=== PATIENT | female | born 2000 | race Caucasian/White ===

== ENCOUNTER 2022-06-18 15:20 | Emergency (ER) | payer OTHER, SELFPAY ==
[2022-06-18 15:27] VITALS: BP 134/86; PULSE 91; RESP 16; TEMP 37.2; O2SAT 100
--- NOTE | 2022-06-18 17:35 | ED.URI ---
HPI - URI/Sore Throat General Chief Complaint: Upper Respiratory Infection Stated Complaint: Cough Time Seen by Provider: 06/18/22 17:35 Source: patient, RN notes reviewed and old records reviewed Mode of arrival: ambulatory Limitations: no limitations History of Present Illness HPI Narrative: 21-year-old female presents to [facility] with 2 week duration cough which has increased in frequency, has some greenish phlegm, also some nasal drainage. Patient reports that she is concerned for possible bronchitis or influenza exposure. Patient reports that she has been taking Mucinex cold and flu medication. Patient reports that her chest peck and her ribs are sore from coughing so much.Patient reports no known fevers. MD elicited complaint: cough, rhinorrhea and nasal congestion Onset (ago): week(s) (2) Able to tolerate fluids by mouth: Yes Treatments prior to arrival: cold medicine Related Data Home Medications Medication Instructions Recorded Confirmed magnesium oxide 400 mg (241.3 mg 400 mg PO DAILY 06/18/22 06/18/22 magnesium) tablet propranolol 20 mg tablet 20 mg PO BID 06/18/22 06/18/22 topiramate 25 mg tablet 25 mg PO BID 06/18/22 06/18/22 Allergies Allergy/AdvReac Type Severity Reaction Status Date / Time No Known Allergies Allergy Verified 06/18/22 16:28 Review of Systems Review of Systems: CONSTITUTIONAL: Denies fever, chills, or sweats. CARDIOVASCULAR: Denies chest pain, palpitations, or edema. RESPIRATORY: Reports cough denies dyspnea. Reports that ribs are sore from coughing and chest peck with cough at times SKIN: Denies rash or itching. Denies lacerations or abrasions MUSCULOSKELETAL: no back pain or any joint pain or myalgia NEUROLOGIC: Denies numbness, or weakness. All systems reviewed & are unremarkable except as noted in HPI and below PMFSH Past Medical History Medical History (Updated 06/23/22 @ 23:57 by Nae Frost NP) Easy bruising Migraine Social History Social History (Updated 06/23/22 @ 23:55 by Nae Frost NP) Smoking status: Never smoker Alcohol use details: does not use Substance use type: does not use Gender identity (if verbalized by the patient): Female Comments At time of signature, agree with nursing past medical, surgical, social and family history. There is no relevant family history pertinent to the presenting complaint Exam Narrative: GENERAL: Well-appearing, well-nourished, and in no acute distress. HEAD: Normocephalic, atraumatic. EYES: PERRLA and EOMI. ENT: Nares clear, clear rhinorrhea no epistaxis. Mucous membranes moist.TM's normal with good light reflex, throat red with no tonsil swelling post nasal discharge noted NECK: Supple.no lymphadenopathy CHEST: Clear to auscultation. No respiratory distress. dry and productive cough noted.SAO2 100% on room air HEART: Regular rate and rhythm. No murmur heard. Normal peripheral pulses. ABDOMEN: Soft, nontender, nondistended, normal active bowel sounds. EXTREMITIES: Normal range of motion. No edema. SKIN: Warm, dry, no rash. NEURO: No focal deficits. Alert and oriented x3. Course Course Emergency Course: Patient is aware of diagnosis, understands and agrees to treatment plan.? Anticipatory guidance given.? Patient agrees to follow-up as directed and is aware of reasons to seek care at the emergency department. Portions of this record may have been created with voice recognition software Level of Care: Express Care Visit Vital Signs Vital signs: Vital Signs Temperature 37.2 C 06/18/22 15:27 Pulse Rate 91 06/18/22 15:27 Respiratory Rate 16 06/18/22 15:27 Blood Pressure 134/86 06/18/22 15:27 Pulse Oximetry 100 06/18/22 15:27 Oxygen Delivery Room Air 06/18/22 15:27 Temperature 37.2 C 06/18/22 15:27 Pulse Rate 91 06/18/22 15:27 Respiratory Rate 16 06/18/22 15:27 Blood Pressure 134/86 06/18/22 15:27 Pulse Oximetry 100 06/18/22 15:27 Oxygen Delivery
== END 2022-06-18 18:05 | disposition home or self-care (01) ==
PROVIDERS: Emergency Provider Registered Nurse
DX: J32.9 Chronic sinusitis, unspecified (principal); R05.1 Acute cough
CPT/HCPCS: 87804; 99213; G0463

== ENCOUNTER 2024-02-08 14:06 | Emergency (ER) | payer OTHER, SELFPAY ==
[2024-02-08 14:15] VITALS: BP 129/82; PULSE 87; RESP 20; TEMP 37.1; O2SAT 100
--- NOTE | 2024-02-08 14:27 | ED.DENTAL ---
HPI - Dental/Oral General Chief complaint: Dental/Oral Stated complaint: tooth infection Time Seen by Provider: 02/08/24 14:28 Source: patient Mode of arrival: ambulatory History of Present Illness HPI Narrative: 23-year-old female presented for complaint of right lower dental pain. She states she has a wisdom tooth at this site which is to be extracted in April, she has a gum flap that gets infected, and is scheduled to have that removed in one week. She says the oral surgeon recommends she get an antibiotic prior to procedure next week. Pain is minimal at this time, worse at night when mouth is dry. MD Complaint: tooth pain Related Data Home Medications Medication Instructions Recorded Confirmed atogepant 30 mg tablet (Qulipta) 30 mg PO DAILY 02/08/24 02/08/24 cholecalciferol (vitamin D3) 25 1,000 unit PO DAILY 02/08/24 02/08/24 mcg (1,000 unit) tablet magnesium oxide 400 mg (241.3 mg 400 mg PO DAILY 02/08/24 02/08/24 magnesium) tablet propranolol 20 mg tablet 20 mg PO DAILY 02/08/24 02/08/24 Allergies Allergy/AdvReac Type Severity Reaction Status Date / Time No Known Allergies Allergy Verified 02/08/24 14:27 Review of Systems Review of Systems: CONSTITUTIONAL: Denies body aches, fever, chills ENT: Denies rhinorrhea, congestion, sore throat, or otalgia. Reports dental pain CARDIOVASCULAR: Denies chest pain, palpitations RESPIRATORY: Denies cough or dyspnea. SKIN: Denies rash, itching, or wounds. MUSCULOSKELETAL: Denies myalgia. NEUROLOGIC: Denies headache, numbness, tingling, or weakness. [facility] Past Medical History Medical History Easy bruising Migraine Social History Social History Smoking status: Never smoker Alcohol use details: does not use Substance use type: does not use Gender identity (if verbalized by the patient): Female Comments At time of signature, I have reviewed and agree with nursing past medical, surgical, social and family history unless otherwise noted. Please see nursing chart for further information. There is no relevant family history pertinent to the presenting complaint Exam Narrative: GENERAL: Appears in mild pain; no acute distress. HEAD: Normocephalic, atraumatic. EYES: EOMI. No redness or drainage. Conjunctivae normal. ENT: Dental pain location of #32, mild gum swelling, no active drainage or abscess. Mucous membranes pink and moist. TMs normal bilaterally. Throat normal. Uvula midline. no dysphagia, odynophagia, dysphonia, or dyspnea NECK: Normal AROM. No lymphadenopathy.no induration below mandible, no neck pain. CHEST: No respiratory distress. Clear to auscultation. HEART: Regular rate and rhythm. No murmur appreciated. SKIN: Warm, dry, no rash. Normal skin turgor. NEURO: No focal deficits. Alert and oriented x3. Gait steady. Course Course Emergency Course: Patient is aware of diagnosis, understands and agrees to treatment plan. Anticipatory guidance given. Patient agrees to follow-up as directed and is aware of reasons to seek care at the emergency department. Portions of this record may have been created with voice recognition software Level of Care: Express Care Visit MDM - Dental/Oral MDM Narrative Medical decision making narrative: Patients pain and complaint coupled with physical findings are consistent with dentalgia. There are no focal signs of space occupying lesions that are compromising to the airway; No uvular deviation or soft palate edema. Patient is non-toxic appearing. The floor of the mouth is soft with no signs of Yordy's Angina; Patient is without trismus or drooling and able to swallow secretions. Patient is felt appropriate for discharge home with dental follow up. Discussed physical exam findings. Advised supportive measures and signs/symptoms to go to the ER. Pt is appropriate for outpt treatme
== END 2024-02-08 14:35 | disposition home or self-care (01) ==
PROVIDERS: Emergency Provider Nurse Practitioner Family
DX: K08.89 Other specified disorders of teeth and supporting structures (principal)
CPT/HCPCS: 99213; G0463

== ENCOUNTER 2024-04-05 14:35 | Emergency (ER) | payer OTHER, BC, SELFPAY ==
[2024-04-05 14:46] VITALS: BP 132/73; PULSE 94; RESP 18; TEMP 36.9; O2SAT 100
--- NOTE | 2024-04-05 15:11 | ED.URI ---
HPI - URI/Sore Throat General Chief Complaint: Upper Respiratory Infection Stated Complaint: Cough/Sore Throat Time Seen by Provider: 04/05/24 15:10 Source: patient, RN notes reviewed and old records reviewed Mode of arrival: ambulatory Limitations: no limitations History of Present Illness HPI Narrative: 23 year old female who presents to [facility] care with complaints of 5 day history of sore throat and cough. Patient reports that sore throat is worse at night and gets hoarse and gets better during the day. Patiinet reports no fevers, states that child had croup recently. Patient reports that she has been taking Sudafed and also Benadryl for her symptoms. Patient reports no known fevers, no sinus drainage. MD elicited complaint: cough and sore throat Onset (ago): day(s) (5) Pain scale (0-10): 3 Able to tolerate fluids by mouth: Yes Treatments prior to arrival: other (Sudafed and Benadryl) Related Data Home Medications Medication Instructions Recorded Confirmed atogepant 30 mg tablet (Qulipta) 30 mg PO DAILY 02/08/24 02/08/24 cholecalciferol (vitamin D3) 25 1,000 unit PO DAILY 02/08/24 02/08/24 mcg (1,000 unit) tablet magnesium oxide 400 mg (241.3 mg 400 mg PO DAILY 02/08/24 02/08/24 magnesium) tablet propranolol 20 mg tablet 20 mg PO DAILY 02/08/24 02/08/24 Allergies Allergy/AdvReac Type Severity Reaction Status Date / Time No Known Allergies Allergy Verified 04/05/24 14:37 Review of Systems Review of Systems: CONSTITUTIONAL: Denies malaise, chills, sweats, or fever. EYES: Denies visual changes, redness, or discharge. ENT: Reports no rhinorrhea, congestion, sinus pain, no otalgia and positive for sore throat. CARDIOVASCULAR: Denies chest pain, palpitations, or edema. RESPIRATORY: Reports cough.? Denies dyspnea. GASTROINTESTINAL: Denies abdominal pain, nausea, vomiting, diarrhea SKIN: Denies rash or itching. MUSCULOSKELETAL: Denies myalgia. NEUROLOGIC: Denies headache. All systems reviewed & are unremarkable except as noted in HPI and below PMFSH Past Medical History Medical History Easy bruising Migraine Social History Social History Smoking status: Never smoker Alcohol use details: does not use Substance use type: does not use Gender identity (if verbalized by the patient): Female Comments At time of signature, agree with nursing past medical, surgical, social and family history. There is no relevant family history pertinent to the presenting complaint Exam Narrative: GENERAL: Well-appearing, well-nourished, and in no acute distress. HEAD: Normocephalic EYES: PERRLA, conjunctivae clear ENT: Nares clear, turbinates edematous and erythematous, clear discharge. Mucous membranes moist. TM pearly esquivel with dull light reflex bilaterally; no tragal tenderness. Oropharynx erythematous without lesions. Tonsils not enlarged and without exudate, no drooling,reports some hoarseness, no trismus, uvula midline.post nasal discharge. NECK: Supple. No lymphadenopathy CHEST: Clear to auscultation, breath sounds equal. No wheezing, rhonchi, rales, or stridor. No respiratory distress, speaks in full sentences.dry cough, SAO2 100% on room air HEART: Regular rate and rhythm. No murmur heard. SKIN: Warm, dry, no rash. NEURO: Alert and oriented x3. PSYCH: Normal mood and affect Course Course Emergency Course: Patient is aware of diagnosis, understands and agrees to treatment plan.? Anticipatory guidance given.? Patient agrees to follow-up as directed and is aware of reasons to seek care at the emergency department. Portions of this record may have been created with voice recognition software Level of Care: Express Care Visit Vital Signs Vital signs: Vital Signs Temperature 36.9 C 04/05/24 14:46 Pulse Rate 94 04/05/24 14:46 Respiratory Rate 18
[2024-04-05 15:16] LABS: EDSTREPNEGPOS1 Negative (Negative)
== END 2024-04-05 15:35 | disposition home or self-care (01) ==
PROVIDERS: Emergency Provider Registered Nurse
DX: R05.9 Cough, unspecified (principal); J02.9 Acute pharyngitis, unspecified
CPT/HCPCS: 87081; 87880; 99213; G0463

== ENCOUNTER 2024-09-16 08:11 | Emergency (ER) | payer BC, SELFPAY ==
--- NOTE | 2024-09-16 08:13 | ED.URI ---
HPI - URI/Sore Throat General Chief Complaint: Upper Respiratory Infection Stated Complaint: Sore Throat Time Seen by Provider: 09/16/24 08:13 Source: patient Mode of arrival: ambulatory Limitations: no limitations History of Present Illness HPI Narrative: Patient is a 23-year-old female who presents with congestion sore throat that started yesterday. Patient states when she woke up this morning it felt like she was swallowing glass. Patient has not taken anything for symptoms. Denies any fever, chills, nausea, vomiting, diarrhea. Related Data Home Medications ?Medication ?Instructions ?Recorded ?Confirmed ?Last Taken ?Type atogepant 30 mg tablet (Qulipta) 30 mg PO DAILY 02/08/24 02/08/24 Unknown History cholecalciferol (vitamin D3) 25 1,000 unit PO DAILY 02/08/24 02/08/24 Unknown History mcg (1,000 unit) tablet magnesium oxide 400 mg (241.3 mg 400 mg PO DAILY 02/08/24 02/08/24 Unknown History magnesium) tablet propranolol 20 mg tablet 20 mg PO DAILY 02/08/24 09/16/24 Unknown History Allergies Allergy/AdvReac Type Severity Reaction Status Date / Time No Known Allergies Allergy Verified 04/05/24 14:37 Review of Systems Review of Systems: All systems reviewed & are unremarkable except as noted in HPI and below Constitutional: Constitutional: Denies chills, Denies fatigue, Denies fever(s), Denies headache(s), Denies malaise and Denies weakness Eyes: Eyes: Denies blurry vision, Denies itchy eyes and Denies loss of vision ENT: Denies otalgia, Denies headache(s), Reports nasal congestion, Denies sinus pain and Reports sore throat Cardiovascular: Cardiovascular: Denies chest pain, Denies irregular heart rhythm and Denies dyspnea Respiratory: Respiratory: Denies cough and Denies dyspnea Gastrointestinal: Gastrointestinal: Denies abdominal pain, Denies diarrhea, Denies nausea and Denies vomiting Musculoskeletal: Musculoskeletal: Denies back pain, Denies myalgias and Denies arthralgias Integumentary/Breasts: Skin/Breast: Denies pruritus and Denies rash Neurologic: Denies headache(s), Denies loss of vision and Denies weakness Psychiatric: Psychiatric: Reports no additional psychiatric complaints Endocrine: Endocrine: Denies fatigue Allergic/Immunologic: Allergic/Immunologic: Denies itchy eyes PMFSH Past Medical History Medical History Easy bruising Migraine Social History Social History Smoking status: Never smoker Alcohol use details: does not use Substance use type: does not use Gender identity (if verbalized by the patient): Female Comments At time of signature, agree with nursing past medical, surgical, social and family history. There is no relevant family history pertinent to the presenting complaint. Exam Const: General: cooperative, healthy appearing, comfortable, no acute distress and well nourished Nutritional Appearance: well nourished Orientation/consciousness: patient oriented x3 Limitations: no limitations HENMT: Head: normal to inspection, normocephalic and atraumatic Ears: hearing grossly normal bilaterally, external ears normal, TM's normal bilaterally, EAC's normal and no periauricular adenopathy Face/Nose/Sinus: Normal external nose present, Abnormal mucous membranes and turbinates present erythematous bilateral and diffuse, normal facial exam, sinuses nontender and face symmetric Face and sinus: normal facial exam, sinuses nontender and face symmetric Mouth: Yes Normal oral and palatal mucosa present, Yes lip normal, Yes tongue normal, Yes Normal salivary glands and ducts present, Yes oropharynx normal and Yes moist mucous membranes Teeth and gingiva: dentition normal Throat: posterior oropharynx normal, tonsils normal, uvula midline and postnasal drainage Eyes: General: appearance normal, both eyes and all related structures Alignment and Position: alignment normal and position normal Periorbital: periorbital findings normal Eyelids: eyelids normal Pupils: Equal, round and reactive pupils present Neck: Neck: normal visual inspection, full ROM, no lymphadenopathy and supple Chest: Chest palpation & inspection: normal inspection of the chest and normal palpation of entire chest wall Resp: Effort & Inspection: normal respiratory effort and able to speak in complete sentences Auscultation: clear to auscultation bilaterally, no crackles, no rales, no rhonchi and no wheezes Cardio: Rate: regular rate Rhythm: regular rhythm Heart sounds: S1 normal heart sound present and S2 normal heart sound present GI: Inspection: normal to inspection Skin: General skin exam: normal color and no rashes or lesions noted Neuro: General: patient oriented x3 and moves all extremities Cranial nerves: Yes Equal, round and reactive pupils present Speech: normal speech Gait exam (Neuro): Normal gait present Extrem: General: normal to inspection, full ROM and no edema Psych: Appearance: grossly normal and well kempt Mental Status: mental status grossly normal Speech and movement: Normal speech and movement present Affect: normal affect Attitude: cooperative Thought process: Normal thought process present Course Course Emergency Course: Discharge instructions reviewed with patient, as well as provided in writing per nursing staff. The instructions also include specific and strict return/GO TO THE ER as well as f/u information. All questions have been answered, and the patient deny any further questions with discharge and discharge plan. Portions of this record may have been created with voice recognition software Level of Care: Express Care Visit Vital Signs Vital signs: Vital Signs Temperature 36.6 C 09/16/24 08:16 Pulse Rate 81 09/16/24 08:16 Respiratory Rate 16 09/16/24 08:16 Blood Pressure 121/88 09/16/24 08:16 Pulse Oximetry 100 09/16/24 08:16 Oxygen Delivery Room Air 09/16/24 08:16 Temperature 36.6 C 09/16/24 08:16 Pulse Rate 81 09/16/24 08:16 Respiratory Rate 16 09/16/24 08:16 Blood Pressure 121/88 09/16/24 08:16 Pulse Oximetry 100 09/16/24 08:16 Oxygen Delivery Room Air 09/16/24 08:16 Reviewed MDM - URI/Sore Throat MDM Narrative Medical decision making narrative: Pt well hydrated appearing, in no respiratory distress, hemodynamically stable. Recommend supportive care. The patient is stable at time of discharge the clinical impression was discussed and the patient was given the opportunity to ask questions, which were addressed as completely as possible given the information available at present. Anticipatory guidance and return to care precautions were discussed and the importance of primary care follow-up was stressed and encouraged. The patient voiced understanding of the plan, indications to return, and the need for follow-up. Differential diagnosis considered: Bronchitis, Rizzo virus, strep pharyngitis, allergic rhinitis, upper respiratory tract infection, sinusitis, rhinosinusitis, nasopharyngitis. viral pharyngitis, otitis media, otitis externa, otitis effusion, foreign body, cerumen impaction, viral syndrome, and influenza.? Exam findings show no acute concerns or changes; patient is non-toxic appearing and is in no distress.? Patient is appropriate for outpatient treatment and follow-up.? Medical Records Attestation: I reviewed the patient's medical records. Lab Data Attestation: I reviewed the patient's lab results. Labs: Lab Results 09/16/24 Range/Units 08:32 POC Grp A Strep Screen Negative (Negative) Discharge Plan Discharge Clinical Impression: Upper respiratory infection Qualifiers: URI type: acute nasopharyngitis (common cold) Qualified Code(s): J00 - Acute nasopharyngitis [common cold] Patient Disposition: Home, Self-Care Condition: Stable Instructions: Upper Respiratory Infection (ED) Additional Instructions: Your rapid strep swab was negative today at [facility]. A throat culture will be sent to the laboratory for further testing. If the test is positive, you will receive a phone call within 48 hours and an appropriate antibiotic will be initiated at that time. Your symptoms are likely due to a viral illness, which is not treated with antibiotics. Viral symptoms can be present for up to a few weeks. -For pain/fever, you may take: Tylenol 650-1000mg by mouth every 4-6 hours. Do not exceed 4000mg in 24 hours. Advil (Ibuprofen) 600 mg by mouth every 6 hours. Do not exceed 2400mg in 24 hours. 8 AM: Tylenol 11 AM: Ibuprofen 2 PM: Tylenol 5 PM: Ibuprofen 8 PM: Tylenol 11 PM: Ibuprofen 2 AM: Tylenol 5 AM: Ibuprofen -Antihistamine medication such as Benadryl/Zyrtec at night and Claritin/Cydney during the day can help improve symptoms. -Use Flonase twice a day for 5 days then daily to help reduce the inflammation and dry up your sinuses. -You can also use Sudafed behind the pharmacy counter(12 or 24 hour). Be sure to drink plenty of water with these medications at least 8 ounces with every dose and it is important to drink 8 to 10 glasses of water per day. Water is a natural decongestant -Eat and drink things that are easy to swallow, like tea or soup, or popsicles. -Oral rinses such as: Salt water gargles and/or may use topical anesthetic (eg. Chloraseptic spray) or lozenges to relieve dryness or throat pain). -Frequent hand washing or hand plug drill operator is one of the best ways to prevent spread of infection. -Using a vaporizer or humidifier at night will also help thin secretions and help with coughing up phlegm. Call your Primary Care Doctor and make a follow-up appointment in 3 days. If your cough worsens, you develop a fever greater than 103, you develop shaking chills, a fast heartbeat, trouble breathing and/or feel you are are breathing much faster than usual, call your Primary Care Doctor or go to the ER. Patient Language: Greek Prescriptions: New fluticasone propionate [Flonase Allergy Relief] 50 mcg/actuation spray,suspension 1 spray intranasal DAILY Qty: 16 0RF Rx Instructions: administer into each nostril No Action magnesium oxide 400 mg (241.3 mg magnesium) tablet 400 mg PO DAILY propranolol 20 mg tablet 20 mg PO DAILY cholecalciferol (vitamin D3) 25 mcg (1,000 unit) tablet 1,000 unit PO DAILY Qulipta 30 mg tablet 30 mg PO DAILY Follow-up/Referrals: Aimee Peralta DO [Physician] - 3 Days Stand Alone Forms: Work/School Release IP Time of Disposition: 08:37
[2024-09-16 08:16] VITALS: BP 121/88; PULSE 81; RESP 16; TEMP 36.6; O2SAT 100
--- OUTSIDE RECORDS SUMMARY | 2024-09-16 08:26 | XMS_ITS | Encounter Summary ---
Author Organization [facility] Address [address] [place] [address] Phone Care Team Providers Care Sharepoint Engineer Name Role Phone Dorina Wu MD Primary Care Provider [phone] Flor Dowell APRN, MARKETING OPERATIONS ANALYST Unavailable [phone] Reason for Visit * Reason Comments Medication Refill Encounter Details Date Type Department Care Team (Late st Contact Info) Description 10/05/[address] [facility] - Neurology [facility] [address] [place] [phone] Flor Dowell, ERICA, MARKETING OPERATIONS ANALYST [address] [place] [address] Medication Refill Social History Tobacco Use Types Packs/Day Years Used Date Smoking Tobacco: Never Smokeless Tobacco: Never Alcohol Use Standard Drinks/Week Comments Not Currently 0 (1 standard drink = 0.6 oz pur e alcohol) Comments Unknown Sex and Gender Information Value Date Recorded Sex Assigned at Not on file Legal Sex Female 4:13 PM CDT Gender Identity Not on file Sexual Orientation Not on file COVID-19 Exposure Response Date Recorded In the last 10 days, have yo u been in contact with someone who was confirmed or suspected to have Coronavirus/COVID-19? No / Unsure 09/22/2022 10:39 AM INJECTION MOLDING PROCESS TECHNICIAN documented as of this encounter Miscellaneous Notes * Telephone Encounter - Kimberly Redmond RN - 10/06/2022 8:14 AM CDT Medication failed the protocol, provider to review and approve the medication order if appropriate. Requested Prescriptions Pending Prescriptions Disp Refills SUMAtriptan (IMITREX) 25 MG Tablet [Pharmacy Med Name: SUMATRIPTAN SUCC 25 MG TABLET] 9 Tablet Sig: Take 1 Tablet by mouth once as needed for Headaches for up to 1 dose. Use as directed. May repeat dose in 2 hours if headache recurs. Not Delegated - Serotonin Agonists (Oral and Nasal) Protocol Failed - 10/05/2022 7:30 AM Failed - This refill cannot be delegated; check utilization no more than 9 doses per month Passed - Visit with relevant provider in past 24 months or upcoming 90 days Recent Visits Date Type Provider Dept 09/08/22 Office Visit Flor Dowell APRN, [facility] Neu[facility] 08/28/22 Telemedicine Flor Dowell APRN, [facility] 08/18/22 Office Visit Flor Dowell APRN [facility] 06/02/22 Office Visit Flor Dowell APRN, [facility] 04/28/22 Office Visit Flor Dowell APRN, [facility] Showing recent visits within past 730 days and meeting all other requirements Future Appointments Date Type Provider Dept 10/27/22 Appointment Flor Dowell APRN [facility] Showing future appointments within next 90 days and meeting all other requirements Passed - No documented Systolic BP > 200 within past 3 months Passed - Number of active Serotonergic medications less than 3 documented in this encounter Plan of Treatment Not on file documented as of this encounter Visit Diagnoses Not on filedocumented in this encounter Care Teams Sharepoint Engineer Relationship Specialty Start Date End Date Dorina Wu MD [address] [place], [place] [id number] PCP - General 03/19/21 Flor Dowell APRN, MARKETING OPERATIONS ANALYST [address] [place] [address] Nurse Practitioner Advanced Practice Nurse 04/28/22 documented as of this encounter
--- OUTSIDE RECORDS SUMMARY | 2024-09-16 08:26 | XMS_ITS | Encounter Summary ---
Author Organization [facility] Address [address] [place] [address] Phone Care Team Providers Care Auto Clutch Specialist Name Role Phone Dorina Wu MD Primary Care Provider [phone] Flor Dowell APRN, UTILITY DIVISION PROJECT MANAGER Unavailable [phone] Reason for Visit * Reason Comments Medication Refill Encounter Details Date Type Department Care Team (Late st Contact Info) Description 12/14/2022 Refill [facility] - Neurology [facility] [address] [place] [id number] Flor Dowell, ERICA, UTILITY DIVISION PROJECT MANAGER [address] [place] [address] Medication Refill Social History Tobacco Use Types [...] on file Sexual Orientation Not on file documented as of this encounter Miscellaneous Notes * Telephone Encounter - Kimberly Redmond RN - 12/15/2022 8:23 AM CDT Medication failed the protocol, provider to review and approve the medication order if appropriate. Requested Prescriptions Pending Prescriptions Disp Refills Rizatriptan Benzoate 5 MG TABLET DISPERSIBLE [Pharmacy Med Name: Rizatriptan Benzoate 5 MG Oral Tablet Disintegrating] 10 Tablet 0 Sig: DISSOLVE 1 TABLET IN MOUTH ONCE NEEDED FOR MIGRAINE OR HEADACHES Not Delegated - Serotonin Agonists (Oral and Nasal) Protocol Failed - 12/14/2022 11:23 AM Failed - This refill cannot be delegated; check utilization no more than 9 doses per month Passed - Visit with relevant provider in past 24 months or upcoming 90 days Recent Visits Date Type Provider Dept 10/27/22 Office Visit Flor Dowell APRN, [facility] 09/08/22 Office Visit Flor Dowell APRN, [facility] 08/28/22 Telemedicine Flor Dowell APRN, [facility] 08/18/22 Office Visit Flor Dowell APRN, [facility] 06/02/22 Office Visit Flor Dowell APRN, [facility] 04/28/22 Office Visit Flor Dowell APRN, [facility] Showing recent visits within past 730 days and meeting all other requirements Future Appointments Date Type Provider Dept 12/29/22 Appointment Flor Dowell APRN, [facility] 02/06/23 Appointment Flor Dowell APRN, [facility] Showing future appointments within next 90 days and meeting all other requirements Passed - No documented Systolic BP > 200 within past 3 months Passed - Number of active Serotonergic medications less than 3 documented in this encounter Plan of Treatment Not on file documented as of this encounter Visit Diagnoses Diagnosis Chronic migraine w/o aura w/o status migrainosus, not intractable Chronic migraine without aura, without mention of intractable migraine without mention of status migrainosus documented in this encounter Care Teams Auto Clutch Specialist Relationship Specialty Start Date End Date Dorina uW MD [address] [place] [address] PCP - General 03/19/21 Flor oDwell APRN, UTILITY DIVISION PROJECT MANAGER [address] [place] [address] Nurse Practitioner Advanced Practice Nurse 04/28/22 documented as of this encounter
--- OUTSIDE RECORDS SUMMARY | 2024-09-16 08:26 | XMS_ITS | Encounter Summary ---
Author Organization [facility] Address [address] [place] [address] Phone Care Team Providers Care Weapons Electrical Engineering Officer Name Role Phone Dorina Wu MD Primary Care Provider [phone] Flor Dowell APRN, SOFT WORK CIGAR MACHINE OPERATOR Unavailable [phone] Encounter Details Date Type Department Care Team (Late st Contact Info) Description 08/22/2024 Results Follow-Up [facility] - Neurology [facility] [address] [place] [address] Yue Rincon I [facility] Social History Tobacco Use Types Packs/Day Years [...] on file documented as of this encounter Progress Notes * Flor Dowell APRN, CNS - 08/22/2024 9:25 AM CST Thank you for the update. UNT MANAGEMENT ASSISTANT documented in this encounter Plan of Treatment Not on file documented as of this encounter Visit Diagnoses Not on filedocumented in this encounter Care Teams Weapons Electrical Engineering Officer Relationship Specialty Start Date End Date Dorina Wu MD [address] [place] [address] PCP - General 03/19/21 Flor Dowell APRN, SOFT WORK CIGAR MACHINE OPERATOR [address] [place] [address] Nurse Practitioner Advanced Practice Nurse 04/28/22 documented as of this encounter
--- OUTSIDE RECORDS SUMMARY | 2024-09-16 08:26 | XMS_ITS | Encounter Summary ---
Author Organization [facility] Address [address] [place] [address] Phone Care Team Providers Care Wire Drawing Die Maker Name Role Phone Dorina Wu MD Primary Care Provider [phone] Flor Dowell APRN, COREM[facility]ER BENCH Unavailable [phone] Reason for Visit * Reason Comments Medication Refill Encounter Details Date Type Department Care Team (Late st Contact Info) Description 03/01/2023 Refill [facility] - Neurology [facility] [address] [place] [phone] Flor Dowell, ERICA, COREMAKER BENCH [address] [place] [address] Medication Refill Social History Tobacco Use Types [...] suspected to have Coronavirus/COVID-19? No / Unsure 01/30/2023 10:51 AM CDT documented as of this encounter Miscellaneous Notes * Telephone Encounter - Kimberly Redmond RN - 03/02/2023 10:13 AM CDT Medication failed the protocol, provider to review and approve the medication order if appropriate. Requested Prescriptions Pending Prescriptions Disp Refills cyclobenzaprine (FLEXERIL) 5 MG Tablet [Pharmacy Med Name: Cyclobenzaprine HCl 5 MG Oral Tablet] 30Tablet 0 Sig: TAKE 1 TABLET BY MOUTH ONCE DAILY NEEDED FOR MUSCLE SPASM Not Delegated - Muscle Relaxants Protocol Failed - 03/01/2023 11:22 AM Failed - This refill cannot be delegated Passed - Visit with relevant provider in past 12 months or upcoming 90 days Recent Visits Date Type Provider Dept 12/29/22 Office Visit Flor Dowell APRN, [facility] 10/27/22 Office Visit Flor Dowell APRN, [facility] 09/08/22 Office Visit Flor Dowell APRN, [facility] 08/28/22 Telemedicine Flor Dowell APRN, [facility] [address] 08/18/22 Office Visit Flor Dowell APRN, [facility] BEN[facility] [address] 06/02/22 Office Visit Flor Dowell APRN, [facility]ER BENCH [facility] [address] 04/28/22 Office Visit Flor Dowell APRN, [facility] BEN[facility] Showing recent visits within past 365 days and meeting all other requirements Future Appointments Date Type Provider Dept 04/06/23 Appointment Flor Dowell APRN, [facility] Showing future appointments within next 90 days and meeting all other requirements documented in this encounter Plan of Treatment Not on file documented as of this encounter Visit Diagnoses Diagnosis Neck pain Cervicalgia documented in this encounter Care Teams Wire Drawing Die Maker Relationship Specialty Start Date End Date Dorina Wu MD [address] [place], [place] [id number] PCP - General 03/19/21 Flor Dowell APRN, COREMAK[facility] BENCH [address] [place] [address] Nurse Practitioner Advanced Practice Nurse 04/28/22 documented as of this encounter
--- OUTSIDE RECORDS SUMMARY | 2024-09-16 08:26 | XMS_ITS | Encounter Summary ---
Author Organization [facility] Address [address] [place] [address] Phone Care Team Providers Care Instructor Bus Trolley And Taxi Name Role Phone Dorina Wu MD Primary Care Provider [phone] Flor Dowell APRN, FILTER CLEANER Unavailable [phone] Reason for Visit * Reason Comments Medication Refill Encounter Details Date Type Department Care Team (Late st Contact Info) Description 09/12/2022 Refill [facility] - [facility] [address] [place] [phone] Flor Dowell, ERICA, FILTER CLEANER [address] [place] [address] Medication Refill Social History Tobacco Use Types [...] suspected to have Coronavirus/COVID-19? No / Unsure 09/08/2022 9:35 AM CIVIL ESTIMATOR documented as of this encounter Plan of Treatment Not on file documented as of this encounter Visit Diagnoses Diagnosis Episodic migraine documented in this encounter Care Teams Instructor Bus Trolley And Taxi Relationship Specialty Start Date End Date Dorina Wu MD [address] [place] [address] PCP - General 03/19/21 Flor Dowell APRN, FILTER CLEANER [address] [place] [address] Nurse Practitioner Advanced Practice Nurse 04/28/22 documented as of this encounter
--- OUTSIDE RECORDS SUMMARY | 2024-09-16 08:26 | XMS_ITS | Encounter Summary ---
Author Organization [facility] Address [address] [place] [address] Phone Care Team Providers Care Sales Route Driver Helper Name Role Phone Dorina Wu MD Primary Care Provider [phone] Flor Dowell APRN, CREATIVE SERVICES COORDINATOR Unavailable [phone] Reason for Visit * Reason Comments Medication Refill Encounter Details Date Type Department Care Team (Late st Contact Info) Description 11/03/2023 Refill [facility] - Neurology [facility] [address]2 [place] [phone] Flor Dowell, ERICA, CREATIVE SERVICES COORDINATOR [address] [place] [address] Medication Refill Social History Tobacco Use Types [...] Telephone Encounter - Kimberly Redmond RN - 11/03/2023 8:19 AM CDT Medication(s) refilled and signed per [facility] Chronic Medication Refill Standing Order for Pediatricand Adult Patients. Requested Prescriptions Pending Prescriptions Disp Refills propranolol (INDERAL) 20 MG Tablet [Pharmacy Med Name: PROPRANOLOL 20MG TABLETS] 90 Tablet 0 Sig: Take 1 tablet by mouth nightly Beta-Blockers Protocol Passed - 11/03/2023 5:01 AM Passed - BP on record in the past year Clinician-entered: BP Readings from Last 3 Encounters: 10/05/23 110/68 07/30/23 112/68 04/06/23 116/72 Patient-entered: No data recorded Passed - Visit with relevant provider in past 12 months or upcoming 90 days Recent Visits Date Type Provider Dept 10/05/23 Office Visit Flor Dowell APRN, CREATIVE SERVICES COORDINATOR [facility] 07/30/23 Office Visit Flor Dowell APRN, [facility] 04/06/23 Office Visit Flor Dowell APRN, [facility] 12/29/22 Office Visit Flor Dowell APRN, CREATIVE SERVICES COORDINATOR [facility] Showing recent visits within past 365 days and meeting all other requirements Future Appointments No visits were found meeting these conditions. Showing future appointments within next 90 days and meeting all other requirements documented in this encounter Plan of Treatment Not on file documented as of this encounter Visit Diagnoses Diagnosis Episodic migraine documented in this encounter Care Teams Sales Route Driver Helper Relationship Specialty Start Date End Date Dorina Wu MD [address] [place] [address] PCP - General 03/19/21 Flor Dowell APRN, CREATIVE SERVICES COORDINATOR [address] [place] [address] Nurse Practitioner Advanced Practice Nurse 04/28/22 documented as of this encounter
--- OUTSIDE RECORDS SUMMARY | 2024-09-16 08:26 | XMS_ITS | Encounter Summary ---
Author Organization [facility] Address [address] [place] [address] Phone Care Team Providers Care Design Agent Name Role Phone Dorina Wu MD Primary Care Provider [phone] Flor Dowell APRN, DOLL WIG MAKER Unavailable [phone] Reason for Visit * Reason Comments Medication Refill Encounter Details Date Type Department Care Team (Late st Contact Info) Description 10/15/2023 Refill [facility] - Neurology [place] [address] [place] [phone] Flor Dowell, ERICA, DOLL WIG MAKER [address] [place] [address] Medication Refill Social History Tobacco Use Types [...] Telephone Encounter - Kimberly Redmond RN - 10/16/2023 8:11 AM CDT Medication(s) refilled and signed per [facility] Chronic Medication Refill Standing Order for Pediatricand Adult Patients. Requested Prescriptions Pending Prescriptions Disp Refills Vitamin D3 1000 UNIT Tablet [Pharmacy Med Name: Vitamin D3 1000 UNIT Oral Tablet] 30 Tablet 3 Sig: Take 1 tablet by mouth once daily Vitamin Supplements (Adult) Protocol Passed - 10/15/2023 4:52 PM Passed - Visit with relevant provider in past 12 months or upcoming 90 days Recent Visits Date Type Provider Dept 10/05/23 Office Visit Flor Dowell APRN, DOLL WIG MAKER [facility] 07/30/23 Office Visit Flor Dowell APRN, DOLL WIG MAKER [facility] 04/06/23 Office Visit Flor Dowell APRN, DOLL WIG MAKER [facility] 12/29/22 Office Visit Flor Dowell APRN, DOLL WIG MAKER [facility]22 Office Visit Flor Dowell APRN, DOLL WIG MAKER [facility] Showing recent visits within past 365 days and meeting all other requirements Future Appointments No visits were found meeting these conditions. Showing future appointments within next 90 days and meeting all other requirements Passed - Vitamin D dose not greater than 1.25mg documented in this encounter Plan of Treatment Not on file documented as of this encounter Visit Diagnoses Diagnosis Vitamin D deficiency Unspecified vitamin D deficiency documented in this encounter Care Teams Design Agent Relationship Specialty Start Date End Date Dorina Wu MD [address] [place] [address] PCP - General 03/19/21 Flor Dowell APRN DOLL WIG MAKER [address] [place] [address] Nurse Practitioner Advanced Practice Nurse 04/28/22 documented as of this encounter
--- OUTSIDE RECORDS SUMMARY | 2024-09-16 08:26 | XMS_ITS | Encounter Summary ---
Author Organization [facility] Address [address] [place] [address] Phone Care Team Providers Care Novelty Twister Operator Name Role Phone Dorina Wu MD Primary Care Provider [phone] Flor Dowell APRN, CONSTRUCTION PLUMBER Unavailable [phone] Reason for Visit * Reason Comments Medication Refill Encounter Details Date Type Department Care Team (Late st Contact Info) Description 09/13/2023 Refill [facility] - Neurology [facility] [address] [place] [phone] Flor Dowell, ERICA, CONSTRUCTION PLUMBER [address] [place] [address] Medication Refill Social History Tobacco Use Types [...] Telephone Encounter - Kimberly Redmond RN - 09/14/2023 9:18 AM CST Medication failed the protocol, provider to review and approve the medication order if appropriate. Requested Prescriptions Pending Prescriptions Disp Refills Qulipta 30 MG Tablet [Pharmacy Med Name: Qulipta 30 MG Oral Tablet] 30 Tablet 3 Sig: Take 1 tablet by mouth once daily Not Delegated - Off Protocol Failed - 09/13/2023 6:33 PM Failed - This refill cannot be delegated Passed - Visit with relevant provider in past 12 months or upcoming 90 days Recent Visits Date Type Provider Dept 07/30/23 Office Visit Flor Dowell APRN, [facility] 04[facility]06/23 Office Visit Flor Dowell APRN [facility] 12[facility]29/22 Office Visit Flor Dowell APRN [facility] 10/27/22 Office Visit Flor Dowell APRN, [facility] Showing recent visits within past 365 days and meeting all other requirements Future Appointments Date Type Provider Dept 10/05/23 Appointment Flor Dowell APRN [facility] Showing future appointments within next 90 days and meeting all other requirements Vitamin D3 1000 UNIT Tablet [Pharmacy Med Name: Vitamin D3 1000 UNIT Oral Tablet] 30 Tablet 0 Sig: Take 1 tablet by mouth once daily Vitamin Supplements (Adult) Protocol Passed - 09/13/2023 6:33 PM Passed - Visit with relevant provider in past 12 months or upcoming 90 days Recent Visits Date Type Provider Dept 07/30/23 Office Visit Flor Dowell APRN [facility] 04/06/23 Office Visit Flor Dowell APRN [facility] 12/29/22 Office Visit Flor Dowell APRN [facility] 10/27/22 Office Visit Flor Dowell APRN [facility] Showing recent visits within past 365 days and meeting all other requirements Future Appointments Date Type Provider Dept 10/05/23 Appointment Flor Dowell APRN [facility] Showing future appointments within next 90 days and meeting all other requirements Passed - Vitamin D dose not greater than 1.25mg ECTION ENGINEER documented in this encounter Plan of Treatment Not on file documented as of this encounter Visit Diagnoses Diagnosis Vitamin D deficiency Unspecified vitamin D deficiency documented in this encounter Care Teams Novelty Twister Operator Relationship Specialty Start Date End Date Dorina Wu MD [address] [place] [address] PCP - General 03/19/21 Flor Dowell APRN, CONSTRUCTION PLUMBER [address] [place] [address] Nurse Practitioner Advanced Practice Nurse 04/28/22 documented as of this encounter
--- OUTSIDE RECORDS SUMMARY | 2024-09-16 08:26 | XMS_ITS | Encounter Summary ---
Author Organization [facility] Address [address] [place] [address] Phone Care Team Providers Care Radio Rigger Name Role Phone Dorina Wu MD Primary Care Provider [phone] Flor Dowell APRN, JUNIOR SALES ASSISTANT Unavailable [phone] Encounter Details Date Type Department Care Team (Late st Contact Info) Description 12/04/2023 Transcribe Orders [facility] Laboratory Services [address] [place] [phone] Francoise Hart MD [address] [place] [address] Infertility associated with anovulation (Primary Dx) Social History Tobacco Use Types Packs/Day Years [...] on file documented as of this encounter Plan of Treatment Not on file documented as of this encounter Results * HEMOGLOBIN A1C W/ ESTIMATED GLUCOSE (2023 4:50 PM CDT) HGB-A1C 5.0 4.0 - 6.0 % 2023 6:40 PM CDT [facility] Est Average Glucose 96.8 mg/dL 2023 6:40 PM CDT [facility] Blood VENOUS STRUCTURE / Unknown Venipuncture / Unknown 2023 4:50 PM CDT 2023 6:04 PM CDT Narrative [facility] - 2023 6:40 PM CDT HEMOGLOBIN A1C: DIABETIC PATIENTS: WELL-CONTROLLED: 6.2 - 7.0 INTERMEDIATE WELL-CONTROLLED: 7.0 - 9.0 POORLY-CONTROLLED: >9.0 Francoise Hart MD CHEMISTRY ORDERABLES Final Result Performing Organization Address City/[facility]/ZIP Co de Phone Number [facility] [address] [place] [address] * THYROID STIMULATING HORMONE (TSH) (2023 4:50 PM CDT) TSH 0.920 0.300 - 5.000 mIU/L 2023 6:55 PM CDT [facility] Blood VENOUS STRUCTURE / Unknown Venipuncture / Unknown 2023 4:50 PM CDT 2023 6:04 PM CDT Francoise Hart MD CHEMISTRY ORDERABLES Final Result [facility] [address] [place] [address] * PROLACTIN (2023 4:50 PM CDT) Prolactin 22.4 1.2 - 29.9 ng/mL 12/25/2023 4:27 PM CDT [facility] Blood VENOUS STRUCTURE / Unknown Venipuncture / Unknown 2023 4:50 PM CDT 2023 6:03 PM CDT us Francoise Hart MD CHEMISTRY ORDERABLES Final Result [facility] [address] [place] [address], documented in this encounter Visit Diagnoses Diagnosis Infertility associated with anovulation- Primary Female infertility associated with anovulation documented in this encounter Care Teams Radio Rigger Relationship Specialty Start Date End Date Dorina Wu MD [address] [place] [address] PCP - General 03/19/21 Flor Dowell APRN, JUNIOR SALES ASSISTANT [address] [place] [address] Nurse Practitioner Advanced Practice Nurse 04/28/22 documented as of this encounter
--- OUTSIDE RECORDS SUMMARY | 2024-09-16 08:26 | XMS_ITS | Encounter Summary ---
Author Organization [facility] Address [address] [place] [address] Phone Care Team Providers Care Social Media Designer Name Role Phone Dorina Wu MD Primary Care Provider [phone] Flor Dowell APRN, PAWN BROKER Unavailable [phone] Reason for Visit * Reason Comments Medication Refill Encounter Details Date Type Department Care Team (Late st Contact Info) Description 03/10/2023 Refill [facility] - Neurology [facility] [address] [place] [id number] Flor Dowell, ERICA, PAWN BROKER [address] [place] [address] Medication Refill Social History Tobacco Use Types [...] Telephone Encounter - Kimberly Redmond RN - 03/12/2023 8:19 AM CDT Medication failed the protocol, provider to review and approve the medication order if appropriate. Requested Prescriptions Pending Prescriptions Disp Refills Qulipta 30 MG Tablet [Pharmacy Med Name: Qulipta 30 MG Oral Tablet] 30 Tablet 3 Sig: Take 1 tablet by mouth once daily Not Delegated - Off Protocol Failed - 03/10/2023 9:41 AM Failed - This refill cannot be delegated Passed - Visit with relevant provider in past 12 months or upcoming 90 days Recent Visits Date Type Provider Dept 12/29/22 Office Visit Flor Dowell APRN, PAWN BROKER [facility] 10/27/22 Office Visit Flor Dowell APRN, PAWN BROKER [facility] Neurology [facility] [address] 09/08/22 Office Visit Flor Dowell APRN, PAWN BROKER [facility] Neurology [facility] [address] 08/28/22 Telemedicine Flor Dowell APRN, PAWN BROKER [facility] 08/18/22 Office Visit Flor Dowell APRN, PAWN BROKER [facility] 06/02/22 Office Visit Flor Dowell APRN, PAWN BROKER [facility] 04/28/22 Office Visit Flor Dowell APRN, PAWN BROKER [facility] Showing recent visits within past 365 days and meeting all other requirements Future Appointments Date Type Provider Dept 04/06/23 Appointment Flor Dowell APRN, PAWN BROKER [facility] Showing future appointments within next 90 days and meeting all other requirements documented in this encounter Plan of Treatment Not on file documented as of this encounter Visit Diagnoses Diagnosis Episodic migraine documented in this encounter Care Teams Social Media Designer Relationship Specialty Start Date End Date Dorina Wu MD [address] [place] [address] PCP - General 03/19/21 Flor Dowell APRN, PAWN BROKER [address] [place] [address] Nurse Practitioner Advanced Practice Nurse 04/28/22 documented as of this encounter
--- OUTSIDE RECORDS SUMMARY | 2024-09-16 08:27 | XMS_ITS | Encounter Summary ---
Author Organization [facility] Address [address] [place] [address] Phone Care Team Providers Care Curing Room Supervisor Name Role Phone Dorina Wu MD Primary Care Provider [phone] Flor Dowell APRN, PATIENT CARE SPECIALIST Unavailable [phone] Reason for Visit * Reason Comments Medication Refill Encounter Details Date Type Department Care Team (Late st Contact Info) Description 02/23/2024 Refill [facility] - Neurology [facility] [address]2 [place] [phone] Flor Dowell, ECONOMICS LECTURER, PATIENT CARE SPECIALIST [address] [place] [address] Medication Refill Social History Tobacco Use Types [...] migraine documented in this encounter Care Teams Curing Room Supervisor Relationship Specialty Start Date End Date Dorina Wu MD [address] [place] [address] PCP - General 03/19/21 Flor Dowell APRN, PATIENT CARE SPECIALIST [address] [place] [address] Nurse Practitioner Advanced Practice Nurse 04/28/22 documented as of this encounter
--- OUTSIDE RECORDS SUMMARY | 2024-09-16 08:27 | XMS_ITS | Encounter Summary ---
Author Organization [facility] Address [address] [place] [address] Phone Care Team Providers Care Gantry Rigger Name Role Phone Dorina Wu MD Primary Care Provider [phone] Flor Dowell APRN, EVENTS ADMINISTRATIVE ASSISTANT Unavailable [phone] Reason for Visit * Reason Comments Medication Refill Encounter Details Date Type Department Care Team (Late st Contact Info) Description 02/22/2024 Refill [facility] - Neurology - [place] [address] [place] [phone] Flor Dowell, ERICA, EVENTS ADMINISTRATIVE ASSISTANT [address] [place] [address] Medication Refill Social History Tobacco Use Types [...] deficiency documented in this encounter Care Teams Gantry Rigger Relationship Specialty Start Date End Date Dorina Wu MD [address] [place] [address] PCP - General 03/19/21 Flor Dowell APRN, EVENTS ADMINISTRATIVE ASSISTANT [address] [place] [address] Nurse Practitioner Advanced Practice Nurse 04/28/22 documented as of this encounter
--- OUTSIDE RECORDS SUMMARY | 2024-09-16 08:27 | XMS_ITS | Encounter Summary ---
Author Organization [facility] Address [address] [place] [address] Phone Care Team Providers Care Assistant Professor Of Communication Name Role Phone Dorina Wu MD Primary Care Provider [phone] Flor Dowell APRN, FANCY WIRE DRAWER Unavailable [phone] Encounter Details Date Type Department Care Team (Late st Contact Info) Description 02/08/2024 Transcribe Orders [facility] Services [address] [place] [phone] Francoise Hart MD [address] [place] [address] [place] [address] Infertility associated with anovulation (Primary Dx) Social [...] as of this encounter Visit Diagnoses Diagnosis Infertility associated with anovulation- Primary Female infertility associated with anovulation documented in this encounter Care Teams Assistant Professor Of Communication Relationship Specialty Start Date End Date Dorina Wu MD [address] [place] [address] PCP - General 03/19/21 Flor Dowell APRN, FANCY WIRE DRAWER [address] [place] [address] Nurse Practitioner Advanced Practice Nurse 04/28/22 documented as of this encounter
--- OUTSIDE RECORDS SUMMARY | 2024-09-16 08:27 | XMS_ITS | Referral Summary ---
Author Organization [facility] Address [address] [place] [phone] Care Team Providers Care Customer Service Operator Name Role Phone Willa Luther NP Primary Care P rovider Francoise Hart MD Unavailable Encounters Date Type Department Care Team Description 08/03/2024 2:25 PM GIS PHYSICAL SCIENTIST Lab [address] [address] from Last 3 Months Allergies No known active allergies Medications propranoloL (INDERAL) 20 mg tablet ONE TABLET TWICE A DAY 2 Active magnesium oxide (MAG-OX) 400 mg (241.3 mg elemental magnesium) tablet Take 1 tablet (400 mg total) by mouth daily 2 Active topiramate (TOPAMAX) 25 mg tablet Take 25 mg by mouth 2 (two) times a day 2 Active ergocalciferol (VITAMIN D) 50,000 unit capsule 3 Active Qulipta 30 mg tablet Take 1 tablet by mouth daily 4 Active vitamin ferrous fumarate-folic () 28 mg iron- 800 mcg tablet Take 1 tablet by mouth daily 30 tablet 4 10/21/19 25 Active clomiPHENE (Clomid) 50 mg tabletIndication s:Encounter for infertility counseling TAKE 1 TABLET BY MOUTH ONCE DAILY STARTING CYCLE DAY 5-9 5 tablet 4 Active Active Problems Problem Noted Date Diagnosed Date Migraine 10/16/2021 Social History Tobacco Use Types Packs/Day Years Used Date Smoking Tobacco: Never Passive Smoke Exposure: Never Smokeless Tobacco: Never Tobacco Cessation:Counseling Given: Not Answered Personal Safety Answer Date Recorded Getting School Help Needed Not on file 07/23 Comments No Sex and Gender Information Value Date Recorded Sex Assigned at Not on file Legal Sex Female 5:03 AM GIS PHYSICAL SCIENTIST Gender Identity Female 04/09/2021 6:55 PM CDT Sexual Orientation Straight 04/09/2021 6: 55 PM CDT Occupation Industry Job Start Date Job End Date Not on file Not on file Not on file Not on file Last Filed Vital Signs Vital Sign Reading Time Taken Comments Blood Pressure 100/60 03/10/2024 1:15 PM CDT Pulse 85 07/24/2020 9:05 AM GIS PHYSICAL SCIENTIST Temperature 36.5 C (97.7 F) 07/24/2020 9:05 AM GIS PHYSICAL SCIENTIST Respiratory Rate 16 07/24/2020 9:05 AM GIS PHYSICAL SCIENTIST Oxygen Saturation 100% 07/24/2020 9:05 AM GIS PHYSICAL SCIENTIST Inhaled Oxygen Concentration - - Weight 57.4 kg (126 lb 9.6 oz) 03/10/2024 1:15 P M CDT Height 160 cm (5' 3 ) 10/21/2023 12:56 PM CDT Body Mass Index 22.43 10/21/2023 12:56 PM CDT Plan of Treatment Not on file Procedures Procedure Name Priority Date/Time Associated Diagnosis Comments MAGNESIUM Routine 08/03/2024 2:29 PM GIS PHYSICAL SCIENTIST N. GONORRHOEAE/C. TRACHOMATIS AMPLIFICATION Routine 10/17/2022 2:51 PM CDT Screen for sexually transmitted diseases PAP WITH REFLEX TO HIGH RISK HPV Routine 10/16/2021 9:30 AM CDT Screening for malignant neoplasm of the cervix from Last 3 Months or Most Recently Relevant to Health Maintenance Results * Magnesium (08/03/2024 2:29 PM GIS PHYSICAL SCIENTIST) Magnesium 2.0 1.4 - 2.5 mg/dL Blood 08/03/2024 2:29 PM GIS PHYSICAL SCIENTIST 08/03/2024 2:46 PM GIS PHYSICAL SCIENTIST us Flor Dowell NURSING DEPARTMENT CHAIRPERSON LAB BLOOD ORDERABLES Collette l Result Performing Organization Address City/[facility]/ZIP Co de Phone Number MICHA MANN [address] [place] [address] * N. gonorrhoeae/C. trachomatis Amplification Endocervical (10/17/2022 2:51 PM CDT) C. trachomatis Not detected Not detected MICHA N. gonorrhoeae Not detected Not detected MICHA Comment: Testing performed by the [facility]. This assay detects Chlamydia trachomatis and Neisseria gonorrhoeae by nucleic acid amplification testing (NAAT). This test is approved by the [place] Food and Drug Administration and the performance characteristics have been verified by the laboratory. The performance characteristics of this test have not been evaluated in women or individuals less than 16 years of age. Endocervical (None) 10/18/19 2:51 PM CDT 10/17/2022 7:42 PM CDT Francoise Hart MD LAB MICROBIOLOGY - [facility] ORDERABLES Final Result Performing Organization Address City/[facility] Co de Phone Number MICHA MANN [address] Department [place] [address] * Pap with reflex to High Risk HPV (10/16/2021 9:30 AM CDT) Thin prep (Pap test) 10/16/2021 9:30 AM CDT 10/16/2021 9:30 AM CDT Narrative PATHOLOGY - 10/18/2021 12:49 PM CDT [facility] Department of Pathology [address] [place] [address] Final Report Note to Patients: This report may contain a detailed description of human tissue sent by a health care provider to the laboratory for pathologic evaluation. The content of this report is essential for diagnosis and may provide important critical findings. This information may be unfamiliar to patients to review without a medical professional present. It is advised that the patient review this report in the presence of a health care provider who can answer questions and explain the details. Patient Name: CINDY YOUSIF Address: [address] [place], [place] [id number] Gender: F : 2000 (Age: 20) Service: Laboratory Location: Lab [facility] #: [id number] Patient Type: Ref Lab Taken: 10/16/2021 Received: 10/16/2021 Accessioned:: 10/17/2021 Reported: 10/18/2021 Physician(s): MD Francoise Betancourt MD Diagnosis: Source of Specimen: Imaged Thinprep Pap Test w/ Reflex HPV - Automotive Lot Attendant Cytologic Material Specimen Adequacy: - Specimen satisfactory for interpretation; endocervical/transformation zone component absent or insufficient General Category: - Negative for intraepithelial lesion or malignancy MICHAEL Blackmon(ASCP) Report Electronically Reviewed and Signed Out By MICHAEL Blackmon(ASCP) 10/18/2021 12:49:28 Specimen(s) Received: A: Imaged Thinprep Pap Test w/ Reflex HPV - [employer]otive Lot Attendant Cytologic Material Clinical History: Last Menstrual Period: 09/30/2021 The Pap test is a screening test used to aid in the detection of cervical cancer and its precursors. It should not be the sole means by which malignant and premalignant lesions are diagnosed. Both false negative and false positive results may occur. It also has poor sensitivity for the detection of endometrial lesions and should not be used to evaluate suspected endometrial abnormalities. For these reasons it is most important to obtain Pap tests at regular intervals. The performance characteristics of some immunohistochemical stains, fluorescence in-situ hybridization tests and immunophenotyping by flow cytometry cited in this report (if any) were determined by the Surgical Pathology Department at [facility] as part of an ongoing quality control lab technician program and in compliance with federally mandated regulations drawn from the Clinical Laboratory Improvement Act of 1988 (CLIA '88). Some of these tests rely on the use of analyte specific reagents and are subject to specific labeling requirements by the [place] Food and Drug Administration. Such diagnostic tests may only be performed in a facility that is certified by the Department of Health and Human Services as a high complexity laboratory under CLIA '88. The FDA has determined that such clearance or approval is not necessary. This test is used for clinical purposes. It should not be regarded as investigational or for research. Nevertheless, federal rules concerning the medical use of analyte specific reagents require that the following disclaimer be attached to the report: This test was developed and its performance characteristics determined by the Surgical Pathology Department [facility]. It has not been cleared or approved by the U. S. Food and Drug Administration. Francoise Hart MD LAB CYTOLOGY ORDERABL ES Final Result Performing Organization Address City/State/ZIP Co w[place] Phone Number PATHOLOGY [address] [place] [address] from Last 3 Months or Most Recently Relevant to Health Maintenance Insurance [employer] ACCESS CHOICE [employer] CHOICE Care Teams Customer Service Operator Relationship Specialty Start Date End Date Willa Luther NP [address] [place] [address] PCP - General Nurse Practitioner 03/14/24 Francoise Hart MD [address] [place] [address] Combination Man Obstetrics and Gynecology 03/14/24
--- OUTSIDE RECORDS SUMMARY | 2024-09-16 08:27 | XMS_ITS | Clinical Summary ---
Author Organization [facility] Address [address] [place] [address] Phone Care Team Providers Care Sql Report Analyst Name Role Phone Dorina Wu MD Primary Care Provider [phone] Flor Dowell APRN, ATOMIC PHYSICS PROFESSOR Unavailable [phone] Allergies No known active allergies Medications butalbital-aceta minophen-caffein e (FIORICET, ESGIC) 50-325-40 MG TabletIndication s:Chronic migraine w/o aura w/o status migrainosus, not intractable Take 1 Tablet by mouth every 4 hours as needed for Headaches or Migraine. 15 Tablet 2 3 Active Additional Information Patient not taking.Reported on 10/05/2023 Qulipta 30 MG Tablet Take 1 tablet by mouth once daily 30 Tablet 3 4 Active propranolol (INDERAL) 20 MG TabletIndication s:Episodic migraine Take 1 tablet by mouth nightly 90 Tablet 4 Active Magnesium Oxide 400 MG CapsuleIndicatio ns:Chronic migraine w/o aura w/o status migrainosus, not intractable Take 1 Capsule by mouth daily. 90 Capsule 3 5 Active Active Problems No known active problems Encounters Date Type Department Care Team Description 08/22/2024 Results Follow-Up [facility] Medical [facility] - Neurology - [place] [address] [place] [address] Yue Rincon I, LINDA 08/19/2024 Travel 08/17/[address] [facility] Neurology [facility] [address] [place] [phone] Flor Dowell, BELT POLISHER, ATOMIC PHYSICS PROFESSOR 08/04/2024 9:30 AM CHARHOUSE WORKER Telemedicine [facility] Neurology - [place] [address] [facility] [place] [phone] Flor Dowell, BELT POLISHER, ATOMIC PHYSICS PROFESSOR Chronic migraine w/o aura w/o status migrainosus, not intractable (Primary Dx) 08/04/2024 Travel 08/03/[address] [facility] Neurology - [place] [address] [facility] [place] [phone] Flor Dowell, BELT POLISHER, ATOMIC PHYSICS PROFESSOR 07/26/[address] [facility] Neurology - [place] [address] [place] [phone] Flor Dowell, BELT POLISHER, ATOMIC PHYSICS PROFESSOR 07/23/[address] [facility] Neurology - [place] [address] [facility] [place] [address] Flor Dowell, BELT POLISHER, ATOMIC PHYSICS PROFESSOR Medication Refill from Last 3 Months Family History Medical History Relation Name Comments Seizures Mother Cancer Paternal Aunt Cancer Paternal Grandfather Cancer Paternal Grandmother Relation Name Status Comments Mother Alive Paternal Aunt Paternal Grandfather Paternal Grandmother Social History Tobacco Use Types Packs/Day Years Used Date Smoking Tobacco: Never Smokeless Tobacco: Never Tobacco Cessation:Counseling Given: Not Answered Alcohol Use Standard Drinks/Week Comments Not Currently 0 (1 standard drink = 0.6 oz pur e alcohol) Comments Unknown Sex and Gender Information Value Date Recorded Sex Assigned at Not on file Legal Sex Female 4:13 PM CDT Gender Identity Not on file Sexual Orientation Not on file Last Filed Vital Signs Vital Sign Reading Time Taken Comments Blood Pressure 128/70 02/04/2024 9:41 AM CDT Pulse 81 02/04/2024 9:41 AM CDT Temperature 36.4 C (97.5 F) 02/04/2024 9:41 AM CDT Respiratory Rate 16 02/04/2024 9:41 AM CDT Oxygen Saturation 98% 02/04/2024 9:41 AM CDT Inhaled Oxygen Concentration - - Weight 57.6 kg (127 lb) 02/04/2024 9:41 AM CDT Height 160 cm (5' 3 ) 02/04/2024 9:41 AM CDT Body Mass Index 22.5 02/04/2024 9:41 AM CDT Plan of Treatment Health Maintenance Due Date Last Done Comments Hepatitis C Virus (HCV) Screening 2000 Human Papillomavirus (HPV) Immunization (1 - 3-dose series) 12/23/2014 Influenza Immunization (#1) 2024 06/22/2022 SARS-COV-2 Immunization (2 - season) 2024 03/13/2021 Respiratory Syncytial Virus (RSV) Immunization (Adult) (1 - 1-dose 75+ series) 12/23/2074 Hepatitis B Immunization Completed 001, 05/06/2000, 03/04/2000 DTaP/Tdap/Td Immunization Discontinued 2012, 03/26/2005, 02/03/2001, Additional history exists TdaP Immunization Completed 05/09/2013 Meningococcal Immunization (ACWY) Aged Out 04/27/2014 No longer eligible based on patient's age to complete this topic Pneumococcal Immunization Combined Aged Out No longer eligible based on patient's age to complete this topic Rotavirus Immunization Aged Out No lo nger eligible based on patient's age to complete this topic Procedures Procedure Name Priority Date/Time Associated Diagnosis Comments CBC WITH AUTO DIFFERENTIAL Routine 08/19/2024 6:45 AM CHARHOUSE WORKER Brain fog IRON,TRANSFERN,CALC.T IBC,%SAT Routine 08/19/2024 6:45 AM CHARHOUSE WORKER Brain fog VITAMIN B12 Routine 08/19/2024 6:45 AM CHARHOUSE WORKER Brain fog THYROID STIMULATING HORMONE (TSH) Routine 08/19/2024 6:45 AM CHARHOUSE WORKER Brain fog CMP (COMPREHENSIVE METABOLIC PANEL) Routine 08/19/2024 6:45 AM CHARHOUSE WORKER Brain fog COMPLETE BLOOD COUNT (CBC) WITH DIFF Routine 08/19/2024 6:45 AM CHARHOUSE WORKER Brain fog MAGNESIUM (MG) Routine 08/19/2024 6:45 AM CHARHOUSE WORKER Chronic migraine w/o aura w/o status migrainosus, not intractable from Last 3 Months Results * IRON,TRANSFERN,CALC.TIBC,%SAT (08/19/2024 6:45 AM CHARHOUSE WORKER) Pathologist [facility] IRON 117 25 - 156 mcg/dL 08/19/2024 9:16 AM CHARHOUSE WORKER [facility] TRANSFERRIN 301 180 - 382 mg/dL 08/19/2024 9:16 AM [facility] TIBC, CALCULATED 376 265 - 497 mcg/dL 08/19/2024 9:16 AM [facility] % SATURATION * 31 15 - 62 % 08/19/2024 9:16 AM [facility] Blood Venipuncture / Unknown 08/19/2024 6:45 AM CHARHOUSE WORKER 08/19/2024 8:41 AM [facility] us Flor Dowell BELT POLISHER, ATOMIC PHYSICS PROFESSOR CHEMISTRY ORDERABLES Final Result [facility] [address] [place] [address] * (ABNORMAL) CBC WITH AUTO DIFFERENTIAL (08/19/2024 6:45 AM [facility]) Pathologist [facility] WBC 7.02 4.00 - 12.00 10(3)/mcL 08/19/2024 8:45 AM CHARHOUSE WORKER [facility] RBC 4.55 3.80 - 5.30 10(6)/mcL 08/19/2024 8:45 AM [facility] HEMOGLOBIN (HGB) 13.7 12.0 - 15.8 g/dL 08/19/2024 8:45 AM CHARHOUSE WORKER [facility] HEMATOCRIT (HCT) 40.7 36.0 - 47.0 % 08/19/2024 8:45 AM [facility] MCV 89.5 82.0 - 96.0 fL 08/19/2024 8:45 AM [facility] MCH 30.1 26.0 - 34.0 pg 08/19/2024 8:45 AM [facility] MCHC 33.7 31.0 - 36.0 g/dL 08/19/2024 8:45 AM [facility] PLATELET COUNT 238 140 - 440 10(3)/mcL 08/19/2024 8:45 AM [facility] RDW 11.7(L) 11.8 - 15.5 % 08/19/2024 8:45 AM [facility] MPV 10.6 9.7 - 12.4 fL 08/19/2024 8:45 AM [facility] NEUTROPHILS 59.5 47.0 - 73.0 % 08/19/2024 8:45 AM [facility] LYMPHOCYTES 31.1 18.0 - 42.0 % 08/19/2024 8:45 AM [facility] MONOCYTES 7.5 4.0 - 12.0 % 08/19/2024 8:45 AM [facility] EOSINOPHILS 1.3 0.0 - 5.0 % 08/19/2024 8:45 AM [facility] BASOPHILS 0.6 0.0 - 1.0 % 08/19/2024 8:45 AM [facility] ABSOLUTE NEUTROPHILS 4.18 1.60 - 7.70 10(3)/mcL 08/19/2024 8:45 AM [facility] ABSOLUTE LYMPHOCYTES 2.18 1.30 - 3.20 10(3)/mcL 08/19/2024 8:45 AM [facility] ABSOLUTE MONOCYTES 0.53 0.20 - 1.00 10(3)/mcL 08/19/2024 8:45 AM [facility] ABSOLUTE EOSINOPHIL 0.09 0.00 - 0.40 10(3)/mcL 08/19/2024 8:45 AM CHARHOUSE WORKER [facility] ABSOLUTE BASOPHILS 0.04 0.00 - 0.10 10(3)/mcL 08/19/2024 8:45 AM CHARHOUSE WORKER [facility] NRBC PER 100 WBC 0 08/19/19 8:45 AM CHARHOUSE WORKER [facility] Blood Venipuncture / Unknown 08/19/2024 6:45 AM CHARHOUSE WORKER 08/19/2024 8:41 AM CHARHOUSE WORKER Flor Dowell APRN, ATOMIC PHYSICS PROFESSOR HEMATOLOGY ORDERABLE S Final Result Performing Organization Address City/[facility]/ZIP Co de Phone Number [facility] [address] [place] [address] * VITAMIN B12 (08/19/2024 6:45 AM CHARHOUSE WORKER) VITAMIN B12 541 213 - 816 pg/mL 08/19/2024 9:31 AM CHARHOUSE WORKER [facility] Blood Venipuncture / Unknown 08/19/2024 6:45 AM CHARHOUSE WORKER 08/19/2024 8:40 AM CHARHOUSE WORKER Flor Dowell APRN, ATOMIC PHYSICS PROFESSOR CHEMISTRY ORDERABLES Final Result Performing Organization Address City/[facility]/ZIP Co de Phone Number [facility] [address] [place] [address] * THYROID STIMULATING HORMONE (TSH) (08/19/2024 6:45 AM CHARHOUSE WORKER) TSH 1.027 0.300 - 5.000 mIU/L 08/19/2024 9:34 AM CHARHOUSE WORKER [facility] Blood Venipuncture / Unknown 08/19/2024 6:45 AM CHARHOUSE WORKER 08/19/2024 8:41 AM CHARHOUSE WORKER Flor Dowell APRN, ATOMIC PHYSICS PROFESSOR CHEMISTRY ORDERABLES Final Result [facility] [address] [place] [address] * MAGNESIUM (MG) (08/19/2024 6:45 AM CHARHOUSE WORKER) MAGNESIUM 2.0 1.6 - 2.6 mg/dL 08/19/2024 9:16 AM CHARHOUSE WORKER [facility] Blood Venipuncture / Unknown 08/19/2024 6:45 AM CHARHOUSE WORKER 08/19/2024 8:41 AM CHARHOUSE WORKER Flor Dowell BELT POLISHER, ATOMIC PHYSICS PROFESSOR CHEMISTRY ORDERABLES Final Result Performing Organization Address [facility] Co de Phone Number [facility] [address] [place] [address] * (ABNORMAL) CMP (COMPREHENSIVE METABOLIC PANEL) (08/19/2024 6:45 AM CHARHOUSE WORKER) Pathologist [facility] SODIUM 141 136 - 145 mmol/L 08/19/2024 9:16 AM [facility] POTASSIUM 3.9 3.5 - 5.1 mmol/L 08/19/2024 9:16 AM [facility] CHLORIDE 106 98 - 107 mmol/L 08/19/2024 9:16 AM [facility] CO2, VENOUS 28 22 - 30 mmol/L 08/19/2024 9:16 AM [facility] ANION GAP 10.9 <18.0 mmol/L 08/19/2024 9:16 AM [facility] GLUCOSE 90 70 - 99 mg/dL 08/19/2024 9:16 AM [facility] BUN 8 5 - 18 mg/dL 08/19/2024 9:16 AM [facility] CREATININE, BLOOD 0.73 0.60 - 1.00 mg/dL 08/19/2024 9:16 AM [facility] BUN/CREATININE RATIO 11(L) 12 - 20 ratio 08/19/2024 9:16 AM [facility] TOTAL PROTEIN 7.2 6.0 - 8.0 g/dL 08/19/2024 9:16 AM [facility] ALBUMIN 4.3 3.5 - 5.0 g/dL 08/19/2024 9:16 AM [facility] A/G RATIO 1.5 1.0 - 2.2 08/19/2024 9:16 AM [facility] CALCIUM 9.1 8.7 - 10.5 mg/dL 08/19/2024 9:16 AM [facility] T BILI 0.6 0.2 - 1.2 mg/dL 08/19/2024 9:16 AM [facility] SGOT (AST) 16 6 - 42 U/L 08/19/2024 9:16 AM [facility] SGPT (ALT) 16 6 - 55 U/L 08/19/2024 9:16 AM [facility] ALKALINE PHOSPHATASE 58 40 - 150 U/L 08/19/2024 9:16 AM [facility] IS THE PATIENT REQUIRED TO BE FASTING? No 08/19/2024 9:16 AM [facility] GFR, ESTIMATED >60 >=60 08/19/2024 9:16 AM [facility] Comment: Creatinine Clearance is the preferred criteria for selecting drug dose adjustments in renally impaired patients. The GFR is provided as additional pertinent clinical information. GFR is reported in mL/min/1.73 sq m. Calculation based on the Chronic Kidney Disease Epidemiology Collaboration (CKD- EPI) equation refit without adjustment for race. GFR, EST. >60 >=60 025 9:16 AM [facility] GFR, EST. NONAFRICAN >60 >=60 08/19/2024 9:16 AM [facility] Blood Venipuncture / Unknown 08/19/2024 6:45 AM CHARHOUSE WORKER 08/19/2024 8:41 AM [facility] us Flor Dowell APRN, ATOMIC PHYSICS PROFESSOR CHEMISTRY ORDERABLES Final Result [facility] [address] [place] [address] from Last 3 Months Insurance [facility] Care Teams Sql Report Analyst Relationship Specialty Start Date End Date Dorina Wu MD [address] [place] [id number] PCP - General 03/19/21 Flor Dowell APRN, ATOMIC PHYSICS PROFESSOR [address] [place] [address] Nurse Practitioner Advanced Practice Nurse 04/28/22
--- OUTSIDE RECORDS SUMMARY | 2024-09-16 08:27 | XMS_ITS | Encounter Summary ---
Author Organization [facility] Address [address] [place] [address] Phone Care Team Providers Care Recruiting Assistant Name Role Phone Dorina Wu MD Primary Care Provider [phone] Flor Dowell APRN, COMMERCIAL REAL ESTATE AGENT Unavailable [phone] Encounter Details Date Type Department Care Team (Late st Contact Info) Description 01/25/2024 [facility]cribe [facility] [address] [place] [phone] Francoise Hart MD [address] [place] [address] [place] [id number] Female infertility associated with anovulation (Primary Dx) Social History [...] as of this encounter Visit Diagnoses Diagnosis Female infertility associated with anovulation- Primary documented in this encounter Care Teams Recruiting Assistant Relationship Specialty Start Date End Date Dorina Wu MD [address] [place] [phone] PCP - General 03/19/21 Flor Dowell APRN, COMMERCIAL REAL ESTATE AGENT [address] [place] [address] Nurse Practitioner Advanced Practice Nurse 04/28/22 documented as of this encounter
--- OUTSIDE RECORDS SUMMARY | 2024-09-16 08:27 | XMS_ITS | Encounter Summary ---
Author Organization [facility] Address [address] [place] [address] Phone Care Team Providers Care Physical Therapy Aid Name Role Phone Dorina Wu MD Primary Care Provider [phone] Flor Dowell APRN, THERAPEUTIC CASE MANAGER Unavailable [phone] Reason for Visit * Reason Comments Medication Refill Encounter Details Date Type Department Care Team (Late st Contact Info) Description 04/25/2024 Refill [facility] - Neurology [facility] [address] [place] [phone] Flor Dowell, ERICA, THERAPEUTIC CASE MANAGER [address] [place] [address] Medication Refill Social History Tobacco Use Types [...] deficiency documented in this encounter Care Teams Physical Therapy Aid Relationship Specialty Start Date End Date Dorina Wu MD [address] [place] [phone] PCP - General 03/19/21 Flor Dowell APRN, THERAPEUTIC CASE MANAGER [address] [place] [address] Nurse Practitioner Advanced Practice Nurse 04/28/22 documented as of this encounter
--- OUTSIDE RECORDS SUMMARY | 2024-09-16 08:27 | XMS_ITS | Clinical Summary ---
Author Organization [facility] Address [address] [place] [phone] Care Team Providers Care Finishing Operator Name Role Phone Willa Luther NP Primary Care P rovider Francoise Hart MD Unavailable Allergies No known active allergies Medications propranoloL [...] Problem Noted Date Diagnosed Date Migraine 10/16/2021 Encounters Date Type Department Care Team Description 08/03/2024 2:25 PM CHILDREN'S NURSERY ASSISTANT Lab [facility] [id number] [place] [phone] from Last 3 Months Medical History Medical History Date Comments Migraine headache Family History Medical History Relation Name Comments Lung cancer Father's Sister Lung cancer Maternal Grandfather Hypertension Mother Pancreatic cancer Paternal Grandmother Relation Name Status Comments Father's Sister Maternal Grandfather Mother Paternal Grandmother Social History Tobacco Use Types Packs/Day Years Used Date Smoking Tobacco: Never Passive Smoke Exposure: Never Smokeless Tobacco: Never Tobacco Cessation:Counseling Given: Not Answered Personal Safety Answer Date Recorded Getting School Help Needed Not on file 07/23 Comments No Sex and Gender Information Value Date Recorded Sex Assigned at Not on file Legal Sex Female 5:03 AM CHILDREN'S NURSERY ASSISTANT Gender Identity Female 04/09/2021 6:55 PM CDT Sexual Orientation Straight 04/09/2021 6: 55 PM CDT Occupation Industry Job Start Date Job End Date Not on file Not on file Not on file Not on file Obstetrics History Para Term AB IAB SAB Ectopic Multiple Livin g Live Births 0 0 0 0 0 0 0 0 0 0 0 Last Filed Vital Signs Vital Sign Reading Time Taken Comments Blood Pressure 100/60 03/10/2024 1:15 PM CDT Pulse 85 07/24/2020 9:05 AM CHILDREN'S NURSERY ASSISTANT Temperature 36.5 C (97.7 F) 07/24/2020 9:05 AM CHILDREN'S NURSERY ASSISTANT Respiratory Rate 16 07/24/2020 9:05 AM CHILDREN'S NURSERY ASSISTANT Oxygen Saturation 100% 07/24/2020 9:05 AM CHILDREN'S NURSERY ASSISTANT Inhaled Oxygen Concentration - - Weight 57.4 kg (126 lb 9.6 oz) 03/10/2024 1:15 P M CDT Height 160 cm (5' 3 ) 10/21/2023 12:56 PM CDT Body Mass Index 22.43 10/21/2023 12:56 PM CDT Plan of Treatment Health Maintenance Due Date Last Done Comments Depression Screening 1999 Hepatitis C Screening 2000 HPV Vaccines (1 - 3-dose series) 12/23/2014 Cervical Cancer Screening 10/16/2022 10/16/2021 DTaP/Tdap/Td Vaccine (7 - Td or Tdap) 05/09/2023 05/09/2013, 03/26/2005, 02/03/2001, Additional history exists Chlamydia and Gonorrhea (GC/CT) Screening 10/18/2023 10/17/2022, 06/30/2022, 10/16/2021 Covid-19 Vaccine ( season) 2024 03/13/2021 Influenza Vaccine (#1) 2024 Regular Well Visit/Exam 18-64 10/20/2024 10/21/2023, 10/17/2022, 10/16/2021 Hepatitis B Screening Completed 02/03/2001 , 05/06/2000, 03/04/2000 Varicella Vaccines Completed 04/27/2014, 03/03/2002 Pneumococcal vaccine <65 Aged Out No longer eligible based on patient's age to complete this topic Procedures Procedure Name Priority Date/Time Associated Diagnosis Comments MAGNESIUM Routine 08/03/2024 2:29 PM CHILDREN'S NURSERY ASSISTANT N. GONORRHOEAE/C. TRACHOMATIS AMPLIFICATION Routine 10/17/2022 2:51 PM CDT Screen for sexually transmitted diseases PAP WITH REFLEX TO HIGH RISK HPV Routine 10/16/2021 9:30 AM CDT Screening for malignant neoplasm of the cervix from Last 3 Months or Most Recently Relevant to Health Maintenance Results * Magnesium (08/03/2024 2:29 PM CHILDREN'S NURSERY ASSISTANT) Magnesium 2.0 1.4 - 2.5 mg/dL Blood 08/03/2024 2:29 PM CHILDREN'S NURSERY ASSISTANT 08/03/2024 2:46 PM CHILDREN'S NURSERY ASSISTANT Flor Dowell SCOURING MACHINE OPERATOR LAB BLOOD ORDERABLES Collette l Result MICHA [address] [place] [address] * N. gonorrhoeae/C. trachomatis Amplification Endocervical (10/17/2022 2:51 PM CDT) C. trachomatis Not detected Not detected MICHA MANN N. gonorrhoeae Not detected Not detected MICHA MANN Comment: Testing performed by the [facility]. This assay detects Chlamydia trachomatis [...] CDT Francoise Hart MD LAB [facility] ORDERABLES Final Result MICHA [address] [place] [address] * Pap with reflex to High Risk HPV (10/16/2021 9:30 AM CDT) Thin prep (Pap test) 10/16/2021 9:30 AM CDT 10/16/2021 9:30 AM CDT Narrative PATHOLOGY - 10/18/2021 12:49 PM CDT [facility] Department of Pathology [address] [place] [id number] Final Report Note to Patients: This [...] the details. Patient Name: CINDY YOUSIF Address: [address] [place] [address] Gender: F : 2000 (Age: 20) Service: Laboratory Location: Lab [facility] #: [id number] Patient Type: Ref Lab Taken: 10/16/2021 Received: 10/16/2021 Accessioned:: 10/17/2021 Reported: 10/18/2021 Physician(s): MD Francoise Betancourt MD Diagnosis: Source of Specimen: Imaged Thinprep Pap Test w/ Reflex HPV - Liquid Natural Gas Plant Operator Cytologic Material Specimen Adequacy: - Specimen satisfactory for interpretation; endocervical/transformation zone component absent or insufficient General Category: - Negative for intraepithelial lesion or malignancy MICHAEL Blackmon(ASCP) Report Electronically Reviewed and Signed Out By MICHAEL Blackmon(ASCP) 10/18/2021 12:49:28 Specimen(s) Received: A: Imaged Thinprep Pap Test w/ Reflex HPV - Liquid Natural Gas Plant Operator Cytologic Material Clinical History: Last Menstrual Period: [...] determined by the Surgical Pathology Department at [facility] as part of an ongoing lead quality technician program and in compliance with federally [...] characteristics determined by the Surgical Pathology Department [facility]. It has not been cleared or approved by the U. S. Food and Drug Administration. Francoise Hart MD LAB CYTOLOGY ORDERABL ES Final Result PATHOLOGY [address] [place] [address] from Last 3 Months or Most Recently Relevant to Health Maintenance Insurance ANTHEM ACCESS CHOICE ANTHEM ACCESS CHOICE Care Teams Finishing Operator Relationship Specialty Start Date End Date Willa Luther NP [address] [place] [id number] PCP - General Nurse Practitioner 03/14/24 Francoise Hart MD [address] [place] [address] Independent Consultant Obstetrics and Gynecology 03/14/24
[2024-09-16 08:34] LABS: EDSTREPNEGPOS1 Negative (Negative)
== END 2024-09-16 08:41 | disposition home or self-care (01) ==
PROVIDERS: Emergency Provider Nurse Practitioner Family
DX: J00 Acute nasopharyngitis [common cold] (principal)
CPT/HCPCS: 87081; 87880; 99213; G0463